=== PATIENT | male | born 1995 | race Caucasian/White ===

== ENCOUNTER → 2022-09-18 | Outpatient (CLI) | payer OTHER, SELFPAY ==
[2022-09-20 16:09] LABS: Alternaria alternata <0.10 kU/L (Class 0); Bluegrass, Kentucky <0.10 kU/L (Class 0); Cat Hair/Dander, Standard <0.10 kU/L (Class 0); D farinae Mite 1.61 kU/L (Class III); D pteronyssinus 2.07 kU/L (Class III); Dog Epithelia <0.10 kU/L (Class 0); Elm, American White 0.12 kU/L (Class 0/I); Oak, White 0.12 kU/L (Class 0/I); Ragweed, Short/Common 0.14 kU/L (Class 0/I)
[2022-09-21 11:07] LABS: Immunoglobulin E 30 IU/mL (6-495); Mouse Urine <0.10 kU/L (Class 0)
== END | disposition home or self-care (01) ==
PROVIDERS: Referring Provider Internal Medicine; Visit Provider Internal Medicine
DX: J45.909 Unspecified asthma, uncomplicated (principal)
CPT/HCPCS: 36415; 82785; 86003